=== PATIENT | female | born 2000 | race Two or more races ===

== ENCOUNTER 2022-06-29 20:48 | Inpatient (IN) | payer OTHER ==
[~2022-06-29] VITALS: Ht 160 cm; Wt 90.7 kg
--- NOTE | 2022-06-29 20:53 | NUR ---
PACIENTE ALERTA Y ORIENTADA POR QUINTEN. REFIERE DOLOR EN AREA ABDOMINOPELVICA LADO DERECHO QUE LE CORRE HASTA LAS NIECY DESDE EL DAVID.
--- NOTE | 2022-06-29 21:40 | NUR ---
PTE ALERTA Y ORIENTADA X3, SE LE DEBBIE MUESTRAS DE LAB. ORESTES ORDEN MEDICA BAJO MEDIDAS ASEPTICAS. SE LE ADMINISTRAN MEDICAMENTO ORESTES ORDEN MEDICA Y SE EDUCA SOBRE TRATAMIENTO MEDICO.
--- NOTE | 2022-06-30 03:04 | NUR ---
SE ORIENTA AL PACIENTE SOBRE EL TX. SE CANALIZA Y ADMINISTRA MEDICAMENTO ORESTES ORDEN MEDICA.
--- NOTE | 2022-06-30 07:07 | NUR ---
SE RECIBE PTE ALERTA Y ORIENTADA X3 EN CAMA BAJA CON BARANDAS ELEVADAS POR SEGURIDAD. SE OBSERVA CON BUEN PATRON RESPIRATORIO, CANALIZADA EN PERIFERAL RT CON ANGIO #22 PATENTE. AREA DE VENOPUNCION SAURABH DE EDEMA Y ERITEMA. RECIBIENDO 0.9NSS BAJANDO 125ML/HR. PEND CONSULTA CON DR. LOPEZ. SE MANTIENE BAJO OBSERVACION POR CAMBIOS SIGNIFICATIVOS.
[2022-07-02] MEDS ORDERED: IBUPROFEN800 MG PO (09:33)
[2022-07-02] MEDS ORDERED: DOCUSATE SODIU100 MG PO (09:33)
== END 2022-07-02 10:02 | disposition home or self-care (01) | DRG 743 ==
LOC: ER 20:48 → O/R 06-30 09:47 → SEC-K 06-30 09:47 → O/R 06-30 12:44 → OB/GYN 06-30 16:30
PROVIDERS: ADMIT Obstetrics & Gynecology; ATTEND Obstetrics & Gynecology
PROC: 0UT00ZZ Resection of Right Ovary, Open Approach (ICD-10-PCS; 2022-06-30)
PROC: 3E1M38Z Irrigation of Peritoneal Cavity using Irrigating Substance, Percutaneous Approach (ICD-10-PCS; 2022-06-30)
PROC: 0UT50ZZ Resection of Right Fallopian Tube, Open Approach (ICD-10-PCS; principal; 2022-06-30 11:00)
DX: D27.0 Benign neoplasm of right ovary (principal); Z20.822 Contact with and (suspected) exposure to COVID-19

== ENCOUNTER 2023-10-23 20:34 | Emergency (ER) | payer OTHER ==
[~2023-10-23] VITALS: Ht 157.5 cm; Wt 90.7 kg
[~2023-10-23 20:34] MED LIST: DOCUSATE SODIU100 MG PO; IBUPROFEN800 MG PO
== END 2023-10-24 | disposition home or self-care (01) ==
LOC: ER 20:34
DX: K29.00 Acute gastritis without bleeding (principal)